=== PATIENT | female | born 1970 | race Caucasian/White ===

== ENCOUNTER 2016-09-30 13:44 | Emergency (ER) | payer OTHER ==
[~2016-09-30] VITALS: Ht 175.3 cm; Wt 96.6 kg
[2016-09-30 14:39] LABS: BASOPHIL % 0.5 % (0-2); PLATELET COUNT 343 x10^3mcL (130-400)
[2016-09-30 14:45] LABS: RED CELL DISTRIBUTION WIDTH 16.4 % (11.5-14.5)
[2016-09-30 14:52] LABS: CALCIUM 9.2 mg/dL (8.5-10.1); CARBON DIOXIDE 19.9 mmol/L (21-32); CREATININE SERUM 1.3 mg/dL (0.6-1.0); POTASSIUM SERUM 4.8 mmol/L (3.5-5.1)
[2016-09-30 15:26] VITALS: BP 98/60
== END 2016-09-30 16:04 | disposition home or self-care (01) ==
LOC: ED 13:44
PROVIDERS: Emergency Medicine
DX: E11.649 Type 2 diabetes mellitus with hypoglycemia without coma (principal); G93.41 Metabolic encephalopathy; I10 Essential (primary) hypertension; F17.200 Nicotine dependence, unspecified, uncomplicated; F15.90 Other stimulant use, unspecified, uncomplicated; Z89.422 Acquired absence of other left toe(s); Z71.6 Tobacco abuse counseling
CPT/HCPCS: 36415; 82962; 99406